=== PATIENT | female | born 1960 | race Caucasian/White ===

== ENCOUNTER → 2020-08-05 11:26 | Outpatient (BNVA) | payer BC, SELFPAY | PROVIDERS: Family Provider Nurse Practitioner; PCP Nurse Practitioner; Visit Provider Obstetrics & Gynecology | DX: Z78.0 Asymptomatic menopausal state; Z12.4 Encounter for screening for malignant neoplasm of cervix | CPT/HCPCS: 83001; 84443; 88175 ==

== ENCOUNTER → 2020-09-23 11:43 | Outpatient (BNVA) | payer BC, SELFPAY | PROVIDERS: Family Provider Nurse Practitioner; PCP Nurse Practitioner; Visit Provider Obstetrics & Gynecology | DX: E03.9 Hypothyroidism, unspecified (principal) | CPT/HCPCS: 84443 ==

== ENCOUNTER 2020-10-29 10:10 | Outpatient (CLI) | payer BC, SELFPAY ==
--- NOTE | 2020-10-29 10:30 | MM_ITS ---
WS: [id number] BILATERAL DIGITAL SCREENING MAMMOGRAPHY WITH CAD CLINICAL INFORMATION: Z12.39 - Encounter for other screening for malignant neoplasm of breast HISTORY: Screening mammogram. No current complaints. COMPARISON: 018 TECHNIQUE: Bilateral CC and MLO views. FINDINGS: The breasts are composed of heterogeneous fibroglandular density tissue, which can limit the detectio n of small underlying mass lesions. Punctate calcifications right subareolar region. No suspicious ma ss, asymmetry, calcifications, or architectural distortion. No evidence of malignancy. MM/[id number] IMPRESSION: BI-RADS: 2-Benign FOLLOW UP: 1 Year Follow-up Recommend return to annual screening mammography.
== END 2020-10-29 10:11 | disposition home or self-care (01) ==
LOC: RADSHAW 10:12
PROVIDERS: PCP Nurse Practitioner; Visit Provider Obstetrics & Gynecology
DX: Z12.31 Encounter for screening mammogram for malignant neoplasm of breast (principal)
CPT/HCPCS: 77067

== ENCOUNTER → 2021-03-19 08:17 | Outpatient (BNVA) | payer OTHER, SELFPAY | PROVIDERS: PCP Nurse Practitioner; Visit Provider Obstetrics & Gynecology | DX: E03.9 Hypothyroidism, unspecified (principal) | CPT/HCPCS: 84443 ==

== ENCOUNTER 2021-11-04 10:04 | Outpatient (CLI) | payer OTHER, SELFPAY ==
--- NOTE | 2021-11-04 10:12 | MM_ITS ---
WS: [id number] BILATERAL SCREENING DIGITAL BREAST TOMOSYNTHESIS MAMMOGRAM WITH CAD HISTORY: Z12.39 - Encounter for other screening for malignant neoplasm... COMPARISON: 10/27/2020, 09/21/2017 and 06/10/2016 Bilateral CC and MLO views with tomosynthesis and synthetic mammography submitted. Computer aided det ection analyzed. Breast composition: The breasts are heterogeneously dense, which may obscure small masses. No suspici ous masses, microcalcifications or architectural distortion. Numerous calcifications are noted within the anterior RIGHT breast. These calcifications are stable over multiple prior years. MM/[id number] IMPRESSION: BI-RADS: 2-Benign FOLLOW UP: 1 Year Follow-up
== END 2021-11-04 10:05 | disposition home or self-care (01) ==
LOC: RAD 10:05
PROVIDERS: PCP Nurse Practitioner; Visit Provider Nurse Practitioner
DX: Z12.31 Encounter for screening mammogram for malignant neoplasm of breast (principal)
CPT/HCPCS: 77063; 77067

== ENCOUNTER → 2023-04-22 14:05 | Outpatient (BNVA) | payer OTHER, SELFPAY | PROVIDERS: PCP Nurse Practitioner; Visit Provider Student in an Organized Health Care Education/Training Program | DX: M79.641 Pain in right hand (principal); M71.341 Other bursal cyst, right hand | CPT/HCPCS: 73130; 99204 ==

== ENCOUNTER 2023-05-20 07:58 | Day surgery (SDC) | payer OTHER, SELFPAY ==
[2023-05-20] VITALS (7 sets, daily range): BP systolic 97–124; BP diastolic 59–76; PULSE 57–66; RESP 16–18; TEMP 36.1–36.4; O2SAT 95–100; BMI 22.3
[2023-05-20] MEDS: scopolamine 1.5 Patch 1 PATCH TRANSDERMA (08:25)
[2023-05-20] MEDS: ketorolac 30 mg/mL INJ IVP (08:33)
[2023-05-20] MEDS: acetaminophen 1,000 MG/100 ML PIGGYBACK 400 MG IV (08:35)
[2023-05-20] MEDS: sodium chloride 0.9% 1,000 ML 30 ML IV (08:35)
--- NOTE | 2023-05-20 08:41 | P.ANESASSM_ITS ---
Pre-Anesthetic Assessment Height/Weight: Height 1.57 m Weight 55.338 kg Temp Pulse Resp BP Pulse Ox O2 Del Method 97.6 F 66 18 121/70 99 Room Air 05/20/23 08:09 05/20/23 08:09 05/20/23 08:09 05/20/23 08:09 05/20/23 08:09 05/20/23 08:09 Operation Date: 05/20/23 09:30 Proposed Procedures p Excision Mass/Lesion Upper Extremity Finger Cyst Excision/ right small finger cyst excision(Right) - Ciro Wibaux, DO Was Beta Kayden taken within 24 hours: N/A Was Clonidine taken within 24 hours: N/A Last intake: Intake Last Liquid Date 05/19/23 Last Liquid Time 19:00 Last Solid Date 05/19/23 Last Solid Time 19:00 Social No tobacco Exam alert and oriented x 3 Airway Submandibular: within normal limits Cervical ROM: within normal limits Mallampati: Class III History/ROS No significant history except as noted and No significant complaints Metabolic Thyroid Disease Anesthetic Plan ASA status: 2 Anesthesia: General and MAC Risk of > 500 ml blood loss (7ml/kg in children): No Medications/Allergies Home Medications Medication Instructions Recorded Confirmed Last Taken Type betamethasone dipropionate 0.05 % 1 applic topical BID PRN Rash 07/28/19 05/20/23 2 Weeks Ago History topical cream ~05/05/23 vitamins A and D3 in cod liver oil 1 cap PO .daily 08/11/21 05/20/23 3 Months Ago History 1,250 unit-135 unit capsule (cod ~02/16/23 liver oil) levothyroxine 25 mcg tablet See Rx Instructions .Route 10/24/21 05/20/23 05/20/23 Rx (Euthyrox) .COMPLEX #90 tabs diphenhydramine HCl 25 mg capsule 25 mg PO TID PRN Allergic Symptoms 05/19/23 05/20/23 05/19/23 History ondansetron 4 mg disintegrating 4 mg PO Q8H PRN nausea and 05/20/23 Unknown Rx tablet vomiting 3 days #9 tabs tramadol 50 mg tablet 50 mg PO Q6H PRN pain #20 tabs 05/20/23 Unknown Rx Allergies Allergy/AdvReac Type Severity Reaction Status Date / Time Penicillins Allergy ALGY-Rash Verified 05/20/23 08:07 Current Medications Generic Name Dose Route Start Last Admin Trade Name Christelle PRN Reason Stop Dose Admin Sodium Chloride 1,000 mls @ 30 mls/hr 05/20/23 08:15 05/20/23 08:35 Sodium Chloride 0.9% IV 05/21/23 08:14 30 mls/hr .Q24H SANAZ Administration PFSH Anesthesia Medical History Well woman exam with routine gynecological exam Environmental and seasonal allergies Surgical History History of tubal ligation Family History Family/Other Diabetes maternal Aunt x2 Mother Hypertension Grandmother Hypertension maternal Brother Heart disease Denies family history of Colon cancer Ovarian cancer Clotting disorder Hyperlipidemia Breast cancer Anesthesia complication Bleeding disorder Uterine cancer Thyroid disease Stroke Social History Smoking and tobacco/nicotine status: never used tobacco/nicotine Alcohol intake: never Substance/Drug Use: never Do you think of yourself as: Straight/Heterosexual Data Anesthesia Cardiac Studies: No Data to Display
--- NOTE | 2023-05-20 10:52 | W.PM.OPSUD ---
Surgery/Procedure H&P Update DATE OF PROCEDURE: May 20, 2023 DATE H&P PERFORMED: 04/22/23 H&P UPDATE INFORMATION: I have reviewed H&P completed within last 30 days, I have examined patient prior to procedure and No changes to prior documentation PREOP DIAGNOSIS: Right small finger cyst PRIMARY INDICATION FOR PROCEDURE: Right small finger cyst PLANNED PROCEDURE: Operation Date: 05/20/23 09:30 Proposed Procedures p Excision Mass/Lesion Upper Extremity Finger Cyst Excision/ right small finger cyst excision(Right) - Ciro Dai DO
[2023-05-20] MEDS: clindamycin 600 MG/50 ML PREMIX 100 MG IV (11:15)
[2023-05-20] MEDS: ROPivacaine 0.5% SDV 30 mL 25 MG INJECTION (11:38)
[2023-05-20] MEDS: BUPivacaine 0.5% INJ 30 mL INJECTION (11:38)
--- NOTE | 2023-05-20 11:52 | W.PM.BPON ---
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 Estimated blood loss: 1 mL Specimen(s) removed: Right small finger cyst excised Post-operative diagnosis: Right small finger cyst
--- NOTE | 2023-05-20 11:53 | P.OP_ITS ---
Operative Report Date of procedure: May 20, 2023 Specimens removed/disposition: Right small finger retinacular cyst excised and sent for pathology Surgeon: Ciro Dai DO Procedure: Preop Dx Right Small finger cyst Post-op diagnosis: Same Procedure done: Right Small finger Retinacular cyst excision Right small finger?trigger?release Surgeon: Ciro Dai DO Estimated blood loss: 1cc Tourniquet time 9mins Complications: None Condition: stable Disposition: same day Brief History: Patient's been seen and worked up in the outpatient setting and findings consistent with preoperative diagnosis of right small finger cyst over a1 sully. Pt is failed conservative treatment.? Continues to have issues and would like to have removed. We talked about treatment options nonoperative versus operative intervention.? ?Patient understands the risk benefits complication alternatives of surgical nonsurgical treatment options.? Understanding his risks with surgery pt elects proceed with surgical intervention.? Consent obtained in the office.? Here today to proceed with surgical intervention.? All questions answered. Procedure: Patient was seen and evaluated in the preoperative holding area.? Consent was reviewed and signed with patient.? Seen evaluated by Anesthesia Department.? Once cleared for surgery was brought back to the operative suite.? Placed in supine position on the OR table all bony prominences well-padded patient properly secured to the bed.? Patient's right arm was then placed to the armboard.? A nonsterile tourniquet applied to the right upper arm.? Patient's right upper extremity was then prepped and draped in standard orthopedic fashion.? Final timeout performed.? Patient received appropriate preoperative antibiotics. Esmarch tourniquet was used exsanguinate the right upper extremity tourniquet insufflated to 250 mmHg. Under sterile aseptic technique local digital block was performed to the right small finger.? Once appropriately anesthetized a standard oblique incision was made centering over the A1 sully. Sharp scalpel incision was made only through skin and then switched to Littler dissection scissors and spread longitudinally directly over the flexor tendon sheath.? Immediately on my dissection underneath the skin a appear to be a retinacular cyst I subsequently mobilized the cyst in all planes radial ulnar distal and proximal and tracked this to the base which communicated the flexor tendon sheath. I then subsequently excised the cyst completely while protecting the neurovascular bundles. Cyst was sent for pathology. I then transected at the base of the stalk and coagulated along the retinaculum of the A1 sully. Given its communication and excess fluid, from the flexor tendon sheath I then subsequently proceeded with a small finger trigger release in hopes to prevent any further recurrence. I then mobilized both radially and ulnarly and Kasdan retractors were used and placed by my integration assistant to protect neurovascular bundle.? Next I visualized the A1 sully and this was incised with a scalpel.? I then switched to dissection scissors and released the A1 sully both proximally as well as distally to its entirety.? Significant tendon sheath fluid was noted consistent with inflammation.? Tendons appeared healthy. At this point I utilized a rag nail and pulled the tendons FDS and FDP out of the incision and no?triggering was noted.? This point thorough irrigation was performed.? Tourniquet deflated hemostasis satisfactory with bipolar.? I then subsequently closed the incision with interrupted nylon suture.? Xeroform 4 x 4's, Kerlix and an Philip wrap was applied for a bulky soft dressing.? Patient was then subsequently awakened from anesthesia and taken to PACU in stable condition tolerated procedure without issues. Disposition: Patient taken back in stable condition recovering well.? Patient will receive appropriate discharge instruction as well as pain medication postoperatively.? Patient to follow-up with me in the office in 2 weeks for repeat evaluation and incision check.? Patient understands that any questions or concerns and contact the office.? All questions answered.
[2023-05-20] MEDS: TRAMadol 50 mg Tablet PO (12:56)
--- NOTE | 2023-05-20 14:19 | ANE.PACU2 ---
Inpatient post-anesthesia follow up: Airway intact: Yes Vital signs: Temperature 97.1 F Pulse Rate 59 Respiratory Rate 18 Blood Pressure 124/76 Pulse Oximetry 100 Oxygen Delivery Me thod Room Air Oxygen Flow Rate Fraction of Inspir ed Oxygen Hydration adequate: Yes Nausea and vomiting: No Pain level: 2 Mental status: Baseline
== END 2023-05-20 13:11 | disposition home or self-care (01) ==
PROVIDERS: PCP Family Medicine; Visit Provider Student in an Organized Health Care Education/Training Program
PROC: (CPT 26055; principal; 2023-05-20 09:30)
PROC: (CPT 26055; 2023-05-20 09:30)
DX: M67.441 Ganglion, right hand (principal); M65.351 Trigger finger, right little finger
CPT/HCPCS: 26055; 26160; 88304; J0131; J1885; J2250; J2704; J2795; J3010; J3490; J7030

== ENCOUNTER → 2023-06-01 13:15 | Outpatient (BNVA) | payer OTHER, SELFPAY | PROVIDERS: PCP Family Medicine; Visit Provider Physician Assistant | DX: Z98.890 Other specified postprocedural states (principal) | CPT/HCPCS: 99024 ==

== ENCOUNTER → 2023-07-06 14:25 | Outpatient (BNVA) | payer OTHER, SELFPAY | PROVIDERS: PCP Family Medicine; Visit Provider Physician Assistant | DX: M71.341 Other bursal cyst, right hand (principal) | CPT/HCPCS: 99024 ==

== ENCOUNTER 2023-07-12 15:50 | Outpatient (RCR) | payer OTHER, SELFPAY | END 2023-08-08 23:59 | disposition home or self-care (01) | LOC: SOT 15:50 | PROVIDERS: PCP Family Medicine; Visit Provider Physician Assistant | DX: Z47.89 Encounter for other orthopedic aftercare (principal) | CPT/HCPCS: 97022; 97110; 97140; 97165 ==

== ENCOUNTER 2025-01-16 08:56 | Outpatient (CLI) | payer BC, SELFPAY ==
--- NOTE | 2025-01-16 09:00 | MM_ITS ---
WS: [id number] BILATERAL 3D TOMOSYNTHESIS DIGITAL SCREENING MAMMOGRAPHY WITH CAD CLINICAL INFORMATION: SCREENING HISTORY: Screening mammogram. No current complaints. COMPARISON: 2021 TECHNIQUE: Bilateral CC and MLO views. FINDINGS: The breasts are composed of heterogeneous fibroglandular density tissue, which can limit the detection of small underlying mass lesions. Increasing nodularity in the central LEFT breast middle depth. Recommend further evaluation with LEFT breast diagnostic mammography and ultrasound if persistent. Stable RIGHT breast. Incidental punctate calcifications bilaterally. MM/MM [facility] tomosynthesis [id number] IMPRESSION: DENSITY: The breasts are heterogeneously dense, which may obscure small masses. BI-RADS: 0 - Incomplete: Need additional imaging evaluation FOLLOW UP: Need Additional Imaging Recommend further evaluation with LEFT breast diagnostic mammography and ultras ound if persistent.
== END 2025-01-16 08:57 | disposition home or self-care (01) ==
PROVIDERS: PCP Family Medicine; Visit Provider Family Medicine
DX: Z12.31 Encounter for screening mammogram for malignant neoplasm of breast (principal); R92.333 Mammographic heterogeneous density, bilateral breasts; R92.323 Mammographic fibroglandular density, bilateral breasts; R92.8 Other abnormal and inconclusive findings on diagnostic imaging of breast
CPT/HCPCS: 77063; 77067